=== PATIENT | female | born 1945 | race Caucasian/White ===

== ENCOUNTER 2018-03-03 09:36 | Emergency (ER) | payer OTHER ==
[~2018-03-03] VITALS: Ht 162.6 cm; Wt 60.0 kg
[2018-03-03 10:43] LABS: BASOPHILS % 0.2 % (0.0-2.0); EOSINOPHILS % 0.2 % (0.0-5.0); HEMATOCRIT. 35.1 % (36.0-48.0); HEMOGLOBIN. 11.7 g/dL (12.0-16.0); LYMPHOCYTES % 13.1 % (20.0-50.0); MEAN CORPUSCULAR HEMOGLOBIN 30.6 pg (28.0-32.0); MEAN CORPUSCULAR VOLUME 91.8 fL (81.0-99.0); MEAN PLATELET VOLUME 10.2 fl (7.4-10.4); MONOCYTES % 4.2 % (2.0-8.0); NEUTROPHILS % 82.3 % (40.0-76.0); PLATELET 222 x1000/uL (130-400); RED BLOOD CELL COUNT 3.83 mill/uL (4.2-5.4); RED CELL DISTRIBUTION WIDTH 13.3 % (11.6-14.6)
[2018-03-03 10:51] LABS: CHLORIDE 105 mEq/L (98-107)
[2018-03-03 10:52] LABS: INR 1.1; PROTHROMBIN TIME 11.2 sec (9.4-11.6)
[2018-03-03 11:29] LABS: T4 FREE 0.98 ng/dL (0.76-1.46)
[2018-03-03] MEDS ORDERED: SODIUM CHLORIDE 0.9% 1,000 ML IV ONE (13:15)
[2018-03-03 14:57] VITALS: BP 150/73
== END 2018-03-03 15:00 | disposition home or self-care (01) ==
LOC: ER 10:13
DX: R55 Syncope and collapse (principal); F41.9 Anxiety disorder, unspecified; D72.829 Elevated white blood cell count, unspecified; E87.6 Hypokalemia; E87.2 Acidosis; I10 Essential (primary) hypertension; I12.9 Hypertensive chronic kidney disease with stage 1 through stage 4 chronic kidney disease, or unspecified chronic kidney disease; N18.3 Chronic kidney disease, stage 3 (moderate); D63.1 Anemia in chronic kidney disease; R79.89 Other specified abnormal findings of blood chemistry; K21.9 Gastro-esophageal reflux disease without esophagitis; E11.65 Type 2 diabetes mellitus with hyperglycemia
CPT/HCPCS: 36415; 71045; 80053; 82962; 83880; 84439; 84443; 84484; 85025; 85610; 93005; 96360; 96361; 99285